=== PATIENT | female | born 1985 | race Caucasian/White ===

== ENCOUNTER 2023-08-26 12:25 | Emergency (ER) | payer SELFPAY ==
[~2023-08-26] VITALS: Ht 160 cm; Wt 46.8 kg
[2023-08-26 12:54] VITALS: TEMP 98.8
[2023-08-26 13:21] VITALS: BP 114/78; PULSE 103; RESP 16
== END 2023-08-26 14:08 | disposition left against medical advice (07) ==
LOC: EMS 12:29
DX: S90.511A Abrasion, right ankle, initial encounter (principal); F41.9 Anxiety disorder, unspecified; F31.9 Bipolar disorder, unspecified; F20.9 Schizophrenia, unspecified; F15.90 Other stimulant use, unspecified, uncomplicated; F17.210 Nicotine dependence, cigarettes, uncomplicated; X58.XXXA Exposure to other specified factors, initial encounter; Y93.89 Activity, other specified; Y92.89 Other specified places as the place of occurrence of the external cause; Y99.8 Other external cause status
CPT/HCPCS: 99283; Z7502

== ENCOUNTER 2023-08-26 16:54 | Emergency (ER) | payer MEDICAID ==
[~2023-08-26] VITALS: Ht 160 cm; Wt 44.5 kg
[2023-08-26 17:08] VITALS: BP 103/72; PULSE 97; RESP 16; TEMP 98.5
[2023-08-26] MEDS ORDERED: ACETAMINOPHEN 325 MG TABLET PO ONE (17:15)
[2023-08-26] MEDS ORDERED: BACITRACIN 0.9 GM PACKET OINTMENT TP ONE (17:15)
[2023-08-26 18:05] LABS: ANION GAP 9 mmol/L (8-16); CALCIUM, TOTAL 8.4 mg/dL (8.8-10.5); CARBON DIOXIDE 25 mmol/L (22-29); CHLORIDE 104 mmol/L (98-107); CREATININE 0.53 mg/dL (0.60-1.30); GLOMERULAR FILTR. RATE CALC > 60 mL/min (>60); GLUCOSE,RANDOM 107 mg/dL (70-110); POTASSIUM 3.1 mmol/L (3.5-5.1); SODIUM SERUM 138 mmol/L (136-145); UREA NITROGEN, BLOOD 15 mg/dL (7-18)
[2023-08-26 18:06] LABS: ALCOHOL, BLOOD (SERUM) < 3 mg/dL (0-10)
[2023-08-26 18:08] LABS: COVID AG,FIA SOURCE NASAL SWAB
[2023-08-26 18:11] LABS: ALANINE AMINOTRANSFERASE 22 U/L (12-78); ALBUMIN 3.1 g/dL (3.4-5.0); ALKALINE PHOSPHATASE 71 U/L (46-116); ASPARTATE AMINOTRANSFERASE 17 U/L (15-37); BILIRUBIN,TOTAL 0.3 mg/dL (0.1-1.0)
[2023-08-26] MEDS ORDERED: POTASSIUM CHLORIDE 20 MEQ ER TABLET PO ONE (18:15)
[2023-08-26] MEDS ORDERED: DOXYCYCLINE HYCLATE 100 MG TABLET PO ONE (18:15)
[2023-08-26 18:33] LABS: SARS-COV2 (COVID) ANTIGEN,FIA Negative (Negative)
== END 2023-08-26 19:02 | disposition home or self-care (01) ==
LOC: EMS 16:55
DX: S96.991A Other specified injury of unspecified muscle and tendon at ankle and foot level, right foot, initial encounter (principal); L03.031 Cellulitis of right toe; Z20.822 Contact with and (suspected) exposure to COVID-19; X58.XXXA Exposure to other specified factors, initial encounter; Y93.89 Activity, other specified; Y92.89 Other specified places as the place of occurrence of the external cause; Y99.8 Other external cause status
CPT/HCPCS: 99284; 87426; 80053; 84703; 36415; G0480